=== PATIENT | male | born 1985 | race Hispanic/Latino ===

== ENCOUNTER 2016-09-19 21:21 | Emergency (ER) | payer BC ==
[2016-09-19 21:27] VITALS: BP 153/108; PULSE 65; RESP 18; TEMP 98.3; O2SAT 100
[2016-09-19] MEDS ORDERED: Absorbable Gelatin Sponge Size 12-7 ONE (23:09)
[2016-09-19] MEDS ORDERED: Absorbable Gelatin Sponge Size 100 TP ONE (23:10)
[2016-09-19] MEDS ORDERED: TDAP Vaccine 0.5 mL Syr IM ONE (23:10)
--- NOTE | 2016-09-20 00:01 | ED PDOC ---
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 denies other c/o. Past Medical History Reviewed: Historical Data, Nursing Documentation, Vital Signs Vital Signs: Last Vital Signs Temp 98.3 F 09/19/16 21:24 Pulse 65 09/19/16 21:24 Resp 18 09/19/16 21:24 BP 153/108 H 09/19/16 21:24 Pulse Ox 100 09/19/16 21:24 - Medical History PMH: No Chronic Diseases - Family History Family History: States: No Known Family Hx - Social History Current smoker - smoking cessation education provided: No Alcohol: None Drugs: Denies - Immunization History Hx Tetanus Toxoid Vaccination: No - Allergies Allergies/Adverse Reactions: Allergies Allergy/AdvReac Type Severity Reaction Status Date / Time No Known Allergies Allergy Verified 09/19/16 21:24 Review of Systems ROS Statement: Except As Marked, All Systems Reviewed And Found Negative Skin: Positive for: Lesions Physical Exam - Reviewed Nursing Documentation Reviewed: Yes Vital Signs Reviewed: Yes - Physical Exam Appears: Positive for: Well, Non-toxic, No Acute Distress Skin: Positive for: Normal Color, Warm, DRY Extremity: Positive for: Other (R 5th finger fingertip avulsion 0.5cm. small bleeding. flex/ext 5/5. ) Neurologic/Psych: Positive for: Alert, Oriented. Negative for: Motor/Sensory Deficits - ECG O2 Sat by Pulse Oximetry: 100 Medical Decision Making Medical Decision Making: bleeding controlled with gelfoam. will d/c home. Disposition - Clinical Impression Clinical Impression: Fingertip avulsion - Patient ED Disposition Is Patient to be Admitted: No - Disposition Referrals: [facility] [Outside] Disposition: Routine/Home Disposition Time: 00:01 Condition: GOOD Instructions: Finger Amputation (ED)
== END 2016-09-19 23:50 | disposition home or self-care (01) ==
LOC: H.ER 21:21
DX: S61.206A Unspecified open wound of right little finger without damage to nail, initial encounter (principal); W26.0XXA Contact with knife, initial encounter; Y92.000 Kitchen of unspecified non-institutional (private) residence as the place of occurrence of the external cause